=== PATIENT | male | born 1995 | race Caucasian/White ===

== ENCOUNTER 2017-06-16 16:32 | Inpatient (IN) | payer SELFPAY ==
[~2017-06-16] VITALS: Ht 172.7 cm; Wt 70.8 kg
[2017-06-16 16:45] VITALS: BP 128/70
[2017-06-16] MEDS ORDERED: Pantoprazole Inj IV ONE (16:45)
--- NOTE | 2017-06-16 16:53 | Emergency Room Report ---
History of Present Illness General Chief Complaint: General Complaint Source: Patient Present Illness HPI Patient presents after he passed melena last night and also some bright red blood. Also today he started vomiting up coffee grounds and then bright red blood. He has a history of gastritis that wasn't as severe a year ago. Paramedics found him pale diaphoretic and hypotensive. He responded to being supine and getting a bolus of 500 of normal saline. The patient denies any abdominal pain. He does have a history of gastritis and is not taking any medication at this time. He denies alcohol use or nonsteroidal anti- inflammatories. Patient apparently passed out twice earlier today which is why friends called EMS. No fevers, URI sy, dysuria, bleeding problems, bruising, headache, joint pain, depression, rashes. Allergies: Coded Allergies: No Known Allergies (Unverified , 06/16/17) Patient History Past Medical History: see triage record Social History: Reports: smoking - stopped 3 months ago, Denies: alcohol use Social History Narrative Amharic and studying Nigerien Reviewed Nursing Documentation: PMH: Agreed, PSxH: Agreed Nursing Documentation-PMH Past Medical History: No Stated History Review of Systems All Other Systems: negative except mentioned in HPI Physical Exam Vital Signs Date Time Temp Pulse Resp B/P (MAP) Pulse Ox O2 Delivery O2 Flow Rate FiO2 06/16/17 16:25 98.0 90 18 110/70 Room Air 98.1 Sp02 EP Interpretation: reviewed, normal General Appearance: well appearing, no apparent distress, GCS 15 Head: normocephalic Eyes: bilateral eye normal inspection, bilateral eye conjunctivae pale ENT: dry mucus membranes, other - blood on nares Neck: supple Respiratory: lungs clear, normal breath sounds Cardiovascular #1: regular rate, rhythm Cardiovascular #2: 2+ radial (R) Gastrointestinal: normal inspection, normal bowel sounds, non tender, no mass, non-distended Musculoskeletal: back normal, gait/station normal, normal range of motion Neurologic: alert, oriented x3, grossly normal Psychiatric: mood/affect normal Skin: warm/dry, pallor Medical Decision Making Diagnostic Impression: Primary Impression: UGI bleed Additional Impressions: Hemorrhagic shock Syncopal episodes Qualified Codes: R55 - Syncope and collapse ER Course Presents with melena and vomiting blood. He's also in a state of shock at this time. Emergent evaluation and treatment is undertaken. Patient needs to get blood. Blood bank has been notified. Also to be treated with Protonix and Zofran. I contacted Blood Bank to advise them that the patient most likely will need transfusions. DDx: gastritis, PUD, amongst others. Initial H/H OK. Patient not tachycardic after bolus. Still with pain. Will repeat H/H. Patient dropped 1 point. Clinically slightly better. Will hold on blood transfusion at this time. Patient color better. HR now without tachycardia. Needs admission for evaluation of UGI bleed and monitoring of H/H (may still need transfusion). Admit telemetry Dr. Quintero. Laboratory Tests Test 06/16/17 17:00 06/16/17 17:20 06/16/17 18:15 06/16/17 18:30 White Blood Count 8.1 K/UL (4.8-10.8) 7.1 K/UL (4.8-10.8) Red Blood Count 4.36 M/UL (4.70-6.10) L 4.06 M/UL (4.70-6.10) L Hemoglobin 13.5 G/DL (14.2-18.0) L 12.6 G/DL (14.2-18.0) L Hematocrit 38.1 % (42.0-52.0) L 35.6 % (42.0-52.0) L Mean Corpuscular Volume 88 FL (80-99) 88 FL (80-99) Mean Corpuscular Hemoglobin 31.0 PG (27.0-31.0) 30.9 PG (27.0-31.0) Mean Corpuscular Hemoglobin Concent 35.4 G/DL (32.0-36.0) 35.3 G/DL (32.0-36.0) Red Cell Distribution Width 10.8 % (11.6-14.8) L 10.7 % (11.6-14.8) L Platelet Count 155 K/UL (150-450) 167 K/UL (150-450) Mean Platelet Volume 8.7 FL (6.5-10.1) 8.9 FL (6.5-10.1) Neutrophils (%) (Auto) 77.3 % (45.0-75.0) H 80.3 % (45.0-75.0) H Lymphocytes (%) (Auto) 15.1 % (20.0-45.0) L 12.4 % (20.0-45.0) L Monocytes (%) (Auto) 6.3 % (1.0-10.0) 6.3 % (1.0-10.0) Eosinophils (%) (Auto) 0.5 % (0.0-3.0) 0.3 % (0.0-3.0) Basophils (%) (Auto) 0.8 % (0.0-2.0) 0.6 % (0.0-2.0) Sodium Level 143 MMOL/L (136-145) Potassium Level 3.9 MMOL/L (3.5-5.1) Chloride Level 108 MMOL/L (98-107) H Carbon Dioxide Level 28 MMOL/L (21-32) Anion Gap 7 mmol/L (5-15) Blood Urea Nitrogen 24 mg/dL (7-18) H Creatinine 1.0 MG/DL (0.55-1.30) Estimate Glomerular Filtration Rate > 60 mL/min (>60) Glucose Level 124 MG/DL (74-106) H Calcium Level 8.5 MG/DL (8.5-10.1) Total Bilirubin 0.5 MG/DL (0.2-1.0) Aspartate Amino Transferase (AST) 25 U/L (15-37) Alanine Aminotransferase (ALT) 72 U/L (12-78) Alkaline Phosphatase 67 U/L (46-116) Total Protein 6.1 G/DL (6.4-8.2) L Albumin 3.4 G/DL (3.4-5.0) Globulin 2.7 g/dL Albumin/Globulin Ratio 1.3 (1.0-2.7) Lipase 94 U/L (73-393) Urine Color Pale yellow Urine Appearance Clear Urine pH 7 (4.5-8.0) Urine Specific [place] 1.010 (1.005-1.035) Urine Protein Negative (NEGATIVE) Urine Glucose (UA) Negative (NEGATIVE) Urine Ketones 3+ (NEGATIVE) H Urine Occult Blood Negative (NEGATIVE) Urine Nitrite Negative (NEGATIVE) Urine Bilirubin Negative (NEGATIVE) Urine Urobilinogen Normal MG/DL (0.0-1.0) Urine Leukocyte Esterase Negative (NEGATIVE) Prothrombin Time 12.0 SEC (9.30-11.50) H Prothrombin Time INR 1.1 (0.9-1.1) PTT 18 SEC (23-33) L EKG Diagnostic Results Rate: normal Rhythm: NSR ST Segments: no acute changes Rhythm Strip Diag. Results EP Interpretation: yes Rhythm: NSR, no PVC's, no ectopy Chest X-Ray Diagnostic Results Chest X-Ray Diagnostic Results : Chest X-Ray Ordered: Yes # of Views/Limited/Complete: 1 View Indication: Other EP Interpretation: Yes Interpretation: no consolidation, no effusion, no pneumothorax Impression: No acute disease Electronically Signed by: Mich Mohan MD Other X-Ray Diagnostic Results Other X-Ray Diagnostic Results : X-Ray ordered: abd # of Views/Limited Vs Complete: 1 View Indication: Other EP Interpretation: Yes Interpretation: nonspecific bowel gas, no sbo, other - no masses Impression: Other Electronically Signed by: Mich Mohan MD Last Vital Signs Date Time Temp Pulse Resp B/P (MAP) Pulse Ox O2 Delivery O2 Flow Rate FiO2 06/16/17 20:00 97.7 101 18 111/68 100 Room Air 97.7 Status: improved Disposition: ADMITTED INPATIENT Condition: Serious Mich Mohan M.D. Jun 16, 2017 16:53
[2017-06-16 17:36] LABS: BASOPHILS % (AUTO) 0.8 % (0.0-2.0); EOSINOPHILS % (AUTO) 0.5 % (0.0-3.0); HEMATOCRIT 38.1 % (42.0-52.0); HEMOGLOBIN 13.5 G/DL (14.2-18.0); LYMPHOCYTES % (AUTO) 15.1 % (20.0-45.0); MEAN CORPUSCULAR VOLUME 88 FL (80-99); MONOCYTES % (AUTO) 6.3 % (1.0-10.0); NEUTROPHILS % (AUTO) 77.3 % (45.0-75.0); PLATELET COUNT 155 K/UL (150-450); RED BLOOD COUNT 4.36 M/UL (4.70-6.10); RED CELL DISTRIBUTION WIDTH 10.8 % (11.6-14.8); WHITE BLOOD COUNT 8.1 K/UL (4.8-10.8)
[2017-06-16 17:36] LABS: APPEARANCE,URINE CLEAR; BILIRUBIN, URINE NEGATIVE (NEGATIVE); COLOR,URINE PALE YELLOW; GLUCOSE, URINE (UA) NEGATIVE (NEGATIVE); KETONES,URINE 3+ (NEGATIVE); LEUKOCYTE ESTERASE ,URINE NEGATIVE (NEGATIVE); NITRITE,URINE NEGATIVE (NEGATIVE); PH,URINE 7 (4.5-8.0); PROTEIN,URINE NEGATIVE (NEGATIVE); UROBILINOGEN,URINE NORMAL MG/DL (0.0-1.0)
[2017-06-16 17:51] LABS: ANION GAP 7 mmol/L (5-15); BLOOD UREA NITROGEN 24 mg/dL (7-18); CALCIUM 8.5 MG/DL (8.5-10.1); CARBON DIOXIDE 28 MMOL/L (21-32); CHLORIDE 108 MMOL/L (98-107); POTASSIUM 3.9 MMOL/L (3.5-5.1); SODIUM 143 MMOL/L (136-145)
[2017-06-16 17:56] LABS: ALANINE AMINOTRANSFERASE 72 U/L (12-78); ALBUMIN 3.4 G/DL (3.4-5.0); ALBUMIN/GLOBULIN RATIO 1.3 (1.0-2.7); ALKALINE PHOSPHATASE 67 U/L (46-116); ASPARTATE AMINO TRANSFERASE 25 U/L (15-37); BILIRUBIN,TOTAL 0.5 MG/DL (0.2-1.0)
[2017-06-16 18:00] VITALS: BP 123/62
[2017-06-16 18:25] LABS: BASOPHILS % (AUTO) 0.6 % (0.0-2.0); EOSINOPHILS % (AUTO) 0.3 % (0.0-3.0); HEMATOCRIT 35.6 % (42.0-52.0); HEMOGLOBIN 12.6 G/DL (14.2-18.0); LYMPHOCYTES % (AUTO) 12.4 % (20.0-45.0); MEAN CORPUSCULAR VOLUME 88 FL (80-99); MONOCYTES % (AUTO) 6.3 % (1.0-10.0); NEUTROPHILS % (AUTO) 80.3 % (45.0-75.0); PLATELET COUNT 167 K/UL (150-450); RED BLOOD COUNT 4.06 M/UL (4.70-6.10); RED CELL DISTRIBUTION WIDTH 10.7 % (11.6-14.8); WHITE BLOOD COUNT 7.1 K/UL (4.8-10.8)
[2017-06-16 19:04] VITALS: BP 113/67
[2017-06-16] MEDS ORDERED: Morphine Sulfate 4mg/ml Inj IVP PRN (19:15)
[2017-06-16] MEDS ORDERED: Phytonadione 10 MG in D5W 55 ML IVPB ONE (19:15)
[2017-06-16] MEDS ORDERED: Nitroglycerin Subl 0.4mg tab SL PRN (19:15)
[2017-06-16] MEDS ORDERED: Mylanta II UD 30ml ORAL PRN (19:15)
[2017-06-16] MEDS ORDERED: Miralax 17gm pkt ORAL PRN (19:15)
[2017-06-16] MEDS ORDERED: NKM (19:21)
[2017-06-16 19:38] LABS: INR 1.1 (0.9-1.1)
[2017-06-16 20:00] VITALS: BP 111/68
[2017-06-16] MEDS: D5NS 1,000 ML IV SCH (20:21)
[2017-06-16] MEDS: Pantoprazole Inj IVP SCH (22:23)
[2017-06-17] VITALS (13 sets, daily range): BP systolic 84–127; BP diastolic 43–75
[2017-06-17] MEDS: D5NS 1,000 ML IV SCH ×3 (04:14→20:56)
[2017-06-17 07:21] LABS: BASOPHILS % (AUTO) 1.2 % (0.0-2.0); EOSINOPHILS % (AUTO) 1.1 % (0.0-3.0); HEMATOCRIT 30.2 % (42.0-52.0); HEMOGLOBIN 10.7 G/DL (14.2-18.0); LYMPHOCYTES % (AUTO) 37.2 % (20.0-45.0); MEAN CORPUSCULAR VOLUME 87 FL (80-99); MONOCYTES % (AUTO) 11.4 % (1.0-10.0); NEUTROPHILS % (AUTO) 49.1 % (45.0-75.0); PLATELET COUNT 147 K/UL (150-450); RED BLOOD COUNT 3.46 M/UL (4.70-6.10); WHITE BLOOD COUNT 4.3 K/UL (4.8-10.8)
[2017-06-17 07:41] LABS: INR 1.1 (0.9-1.1)
[2017-06-17 08:14] LABS: ALANINE AMINOTRANSFERASE 53 U/L (12-78); ALBUMIN/GLOBULIN RATIO 1.4 (1.0-2.7); ALKALINE PHOSPHATASE 56 U/L (46-116); AMYLASE 20 U/L (25-115); ANION GAP 6 mmol/L (5-15); ASPARTATE AMINO TRANSFERASE 16 U/L (15-37); BILIRUBIN,TOTAL 0.4 MG/DL (0.2-1.0); BLOOD UREA NITROGEN 16 mg/dL (7-18); CALCIUM 8.1 MG/DL (8.5-10.1); CARBON DIOXIDE 28 MMOL/L (21-32); CHLORIDE 110 MMOL/L (98-107); CREATININE 0.9 MG/DL (0.55-1.30); POTASSIUM 3.5 MMOL/L (3.5-5.1); SODIUM 144 MMOL/L (136-145)
[2017-06-17] MEDS: Pantoprazole Inj IVP SCH (08:46)
--- NOTE | 2017-06-17 09:24 | Diagnostic Imaging Report ---
Indication: Chest pain Technique: One view of the chest Comparison: none Findings: Lungs and pleural spaces are clear. Heart size is normal Impression: No acute process
--- NOTE | 2017-06-17 09:25 | Diagnostic Imaging Report ---
Indication: Abdominal pain Technique: Supine view of the abdomen Comparison: none Findings: Bowel gas pattern is unremarkable. No unusual masses or calcifications. Impression: No acute process
--- NOTE | 2017-06-17 09:38 | Pre-Procedure Note/Attestation ---
Pre-Procedure Note/Attestation Complete Prior to Procedure Planned Procedure: not applicable Procedure Narrative: egd Indications for Procedure Pre-Operative Diagnosis: gib Attestation I attest that I discussed the nature of the procedure; its benefits; risks and complications; and alternatives (and the risks and benefits of such alternatives ), prior to the procedure, with the patient (or the patient's legal credit representative). I attest that, if there was a reasonable possibility of needing a blood transfusion, the patient (or the patient's legal credit representative) was given the [facility] standardized written summary, pursuant to the [place] Blood Safety Act ([place] Health and Safety Code # 1645, as amended). I attest that I re-evaluated the patient just prior to the surgery and that there has been no change in the patient's H&P, except as documented below: FELY TORRES Jun 17, 2017 09:38
--- NOTE | 2017-06-17 09:45 | Short Stay Surgery H&P ---
History of Present Illness History of Present Illness Chief Complaint gib HPI Roberto Reynoso is a 22 year old male who was admitted on Jun 16, 2017 at 17:11 for Gastrointestinal Bleed, Shock Patient History Allergies: Coded Allergies: No Known Allergies (Unverified , 06/16/17) PAST MEDICAL HISTORY: Past Surgeries: Social History: Medication History Scheduled No Known Medications* (NKM - No Known Medications*), 0 ., (Reported) Review of Systems Cardiovascular: Reports: no symptoms, peripheral vascular disease Respiratory: Reports: no symptoms Skeletal: Reports: no symptoms Gastrointestinal: Reports: other Genitourinary: Reports: see HPI Neurologic: Reports: see HPI Endocrine: Reports: see HPI Hematologic: Reports: see HPI Physical Exam Vital Signs Last Vital Signs Date Time Temp Pulse Resp B/P (MAP) Pulse Ox O2 Delivery O2 Flow Rate FiO2 06/17/17 04:00 77 06/17/17 00:00 98.7 20 108/60 100 Room Air 98.7 Labs Laboratory Tests Test 06/16/17 17:00 06/16/17 17:20 06/16/17 18:15 06/16/17 18:30 White Blood Count 8.1 K/UL (4.8-10.8) 7.1 K/UL (4.8-10.8) Red Blood Count 4.36 M/UL (4.70-6.10) L 4.06 M/UL (4.70-6.10) L Hemoglobin 13.5 G/DL (14.2-18.0) L 12.6 G/DL (14.2-18.0) L Hematocrit 38.1 % (42.0-52.0) L 35.6 % (42.0-52.0) L Mean Corpuscular Volume 88 FL (80-99) 88 FL (80-99) Mean Corpuscular Hemoglobin 31.0 PG (27.0-31.0) 30.9 PG (27.0-31.0) Mean Corpuscular Hemoglobin Concent 35.4 G/DL (32.0-36.0) 35.3 G/DL (32.0-36.0) Red Cell Distribution Width 10.8 % (11.6-14.8) L 10.7 % (11.6-14.8) L Platelet Count 155 K/UL (150-450) 167 K/UL (150-450) Mean Platelet Volume 8.7 FL (6.5-10.1) 8.9 FL (6.5-10.1) Neutrophils (%) (Auto) 77.3 % (45.0-75.0) H 80.3 % (45.0-75.0) H Lymphocytes (%) (Auto) 15.1 % (20.0-45.0) L 12.4 % (20.0-45.0) L Monocytes (%) (Auto) 6.3 % (1.0-10.0) 6.3 % (1.0-10.0) Eosinophils (%) (Auto) 0.5 % (0.0-3.0) 0.3 % (0.0-3.0) Basophils (%) (Auto) 0.8 % (0.0-2.0) 0.6 % (0.0-2.0) Sodium Level 143 MMOL/L (136-145) Potassium Level 3.9 MMOL/L (3.5-5.1) Chloride Level 108 MMOL/L (98-107) H Carbon Dioxide Level 28 MMOL/L (21-32) Anion Gap 7 mmol/L (5-15) Blood Urea Nitrogen 24 mg/dL (7-18) H Creatinine 1.0 MG/DL (0.55-1.30) Estimat Glomerular Filtration Rate > 60 mL/min (>60) Glucose Level 124 MG/DL (74-106) H Calcium Level 8.5 MG/DL (8.5-10.1) Total Bilirubin 0.5 MG/DL (0.2-1.0) Aspartate Amino Transf (AST/SGOT) 25 U/L (15-37) Alanine Aminotransferase (ALT/SGPT) 72 U/L (12-78) Alkaline Phosphatase 67 U/L (46-116) Total Protein 6.1 G/DL (6.4-8.2) L Albumin 3.4 G/DL (3.4-5.0) Globulin 2.7 g/dL Albumin/Globulin Ratio 1.3 (1.0-2.7) Lipase 94 U/L (73-393) Urine Color Pale yellow Urine Appearance Clear Urine pH 7 (4.5-8.0) Urine Specific [place] 1.010 (1.005-1.035) Urine Protein Negative (NEGATIVE) Urine Glucose (UA) Negative (NEGATIVE) Urine Ketones 3+ (NEGATIVE) H Urine Occult Blood Negative (NEGATIVE) Urine Nitrite Negative (NEGATIVE) Urine Bilirubin Negative (NEGATIVE) Urine Urobilinogen Normal MG/DL (0.0-1.0) Urine Leukocyte Esterase Negative (NEGATIVE) Prothrombin Time 12.0 SEC (9.30-11.50) H Prothromb Time International Ratio 1.1 (0.9-1.1) Activated Partial Thromboplast Time 18 SEC (23-33) L Test 06/17/17 06:45 White Blood Count 4.3 K/UL (4.8-10.8) L Red Blood Count 3.46 M/UL (4.70-6.10) L Hemoglobin 10.7 G/DL (14.2-18.0) L Hematocrit 30.2 % (42.0-52.0) L Mean Corpuscular Volume 87 FL (80-99) Mean Corpuscular Hemoglobin 30.9 PG (27.0-31.0) Mean Corpuscular Hemoglobin Concent 35.4 G/DL (32.0-36.0) Red Cell Distribution Width 11.0 % (11.6-14.8) L Platelet Count 147 K/UL (150-450) L Mean Platelet Volume 8.9 FL (6.5-10.1) Neutrophils (%) (Auto) 49.1 % (45.0-75.0) Lymphocytes (%) (Auto) 37.2 % (20.0-45.0) Monocytes (%) (Auto) 11.4 % (1.0-10.0) H Eosinophils (%) (Auto) 1.1 % (0.0-3.0) Basophils (%) (Auto) 1.2 % (0.0-2.0) Prothrombin Time 12.0 SEC (9.30-11.50) H Prothromb Time International Ratio 1.1 (0.9-1.1) Activated Partial Thromboplast Time 24 SEC (23-33) Sodium Level 144 MMOL/L (136-145) Potassium Level 3.5 MMOL/L (3.5-5.1) Chloride Level 110 MMOL/L (98-107) H Carbon Dioxide Level 28 MMOL/L (21-32) Anion Gap 6 mmol/L (5-15) Blood Urea Nitrogen 16 mg/dL (7-18) Creatinine 0.9 MG/DL (0.55-1.30) Estimat Glomerular Filtration Rate > 60 mL/min (>60) Glucose Level 119 MG/DL (74-106) H Calcium Level 8.1 MG/DL (8.5-10.1) L Total Bilirubin 0.4 MG/DL (0.2-1.0) Aspartate Amino Transf (AST/SGOT) 16 U/L (15-37) Alanine Aminotransferase (ALT/SGPT) 53 U/L (12-78) Alkaline Phosphatase 56 U/L (46-116) Total Protein 5.1 G/DL (6.4-8.2) L Albumin 3.0 G/DL (3.4-5.0) L Globulin 2.1 g/dL Albumin/Globulin Ratio 1.4 (1.0-2.7) Amylase Level 20 U/L (25-115) L Lipase 72 U/L (73-393) L Skin: normal HENT: normal Heart: normal Lungs: normal Abdomen: normal Extremities: normal Plan Plan of Care egd Final Diagnosis: Attestation Are the patient's medical conditions optimized for surgery? Attestation Response: yes FELY TORRES Jun 17, 2017 09:45
--- NOTE | 2017-06-17 09:54 | Endoscopy Procedure Note ---
Endoscopy Procedure Note General Indication for Procedure: gib Procedures Performed: EGD Operative Findings/Diagnosis: du Specimen: yes Pt Tolerated Procedure Well: Yes Estimated Blood Loss: none Anesthesia Anesthesiologist: regi Anesthesia: MAC Inserted Devices Implant(s) used?: No GI Core Measures 50 yrs or older w/o bx or poly: Not Applicable 10yrs. F/U not recommended: Not Applicable FELY TORRES Jun 17, 2017 09:54
[2017-06-17] MEDS ORDERED: LR 1000ml ONE (10:00)
[2017-06-17] MEDS ORDERED: Propofol 200mg/20ml IV ONE (10:00)
[2017-06-17] MEDS ORDERED: Lidocaine 1% MPF 10mg/ml 5ml ONE (10:00)
--- NOTE | 2017-06-17 10:01 | Immediate Post-Op Evaluation ---
Immediate Post-Op Evalulation Immediate Post-Op Evalulation Procedure: EGD Date of Evaluation: Jun 17, 2017 Time of Evaluation: 10:00 IV Fluids: 500 Blood Pressure Systolic: 84 Blood Pressure Diastolic: 43 Pulse Rate: 76 Respiratory Rate: 14 O2 Sat by Pulse Oximetry: 100 Temperature (Fahrenheit): 98.0 Pain Score (1-10): 0 Nausea: No Vomiting: No Complications none Patient Status: awake, reacts Hydration Status: adequate Drug: none LUC PAIGE CRNA Jun 17, 2017 10:01
--- NOTE | 2017-06-17 10:02 | Anethesia Preoperative Eval ---
Anesthesia Pre-op PMH/ROS General Date of Evaluation: Jun 17, 2017 Time of Evaluation: 09:42 Anesthesiologist: jai ASA Score: ASA 2 Mallampati Score Class I : Soft palate, uvula, fauces, pillars visible Class II: Soft palate, uvula, fauces visible Class III: Soft palate, base of uvula visible Class IV: Only hard plate visible Mallampati Classification: Class II Surgeon: haroldo Diagnosis: gi bleed Surgical Procedure: EGD Anesthesia History: none Family History: no anesthesia problems Allergies: Coded Allergies: No Known Allergies (Unverified , 06/16/17) Medications: see eMAR Past Medical History Cardiovascular: Denies: HTN, CAD, LA, valve dz, arrhythmia, other Pulmonary: Denies: asthma, COPD, LIZZIE, other Gastrointestinal/Genitourinary: Denies: GERD, CRI, ESRD, other Neurologic/Psychiatric: Denies: dementia, CVA, depression/anxiety, TIA, other Endocrine: Denies: DM, hypothyroidism, steroids, other HEENT: Denies: cataract (L), cataract (R), glaucoma, [place] (L), [place] (R), other Hematology/Immune: Reports: anemia Musculoskeletal/Integumentary: Denies: OA, RA, DJD, DDD, edema, other PSxH Narrative: none Anesthesia Pre-op Phys. Exam Physician Exam Last Vital Signs Date Time Temp Pulse Resp B/P (MAP) Pulse Ox O2 Delivery O2 Flow Rate FiO2 06/17/17 04:00 77 06/17/17 00:00 98.7 20 108/60 100 Room Air 98.7 Constitutional: NAD Neurologic: CN 2-12 intact Cardiovascular: RRR Respiratory: CTA Gastrointestinal: S/NT/ND Airway Exam Mallampati Classification 2 Mallampati Score: Class II MO: full ROM: full Dentures: no upper, no lower Anesthesia Pre-op A/P Labs Hematology Test 06/16/17 17:00 06/16/17 18:15 06/17/17 06:45 White Blood Count 8.1 K/UL (4.8-10.8) 7.1 K/UL (4.8-10.8) 4.3 K/UL (4.8-10.8) L Red Blood Count 4.36 M/UL (4.70-6.10) L 4.06 M/UL (4.70-6.10) L 3.46 M/UL (4.70-6.10) L Hemoglobin 13.5 G/DL (14.2-18.0) L 12.6 G/DL (14.2-18.0) L 10.7 G/DL (14.2-18.0) L Hematocrit 38.1 % (42.0-52.0) L 35.6 % (42.0-52.0) L 30.2 % (42.0-52.0) L Mean Corpuscular Volume 88 FL (80-99) 88 FL (80-99) 87 FL (80-99) Mean Corpuscular Hemoglobin 31.0 PG (27.0-31.0) 30.9 PG (27.0-31.0) 30.9 PG (27.0-31.0) Mean Corpuscular Hemoglobin Concent 35.4 G/DL (32.0-36.0) 35.3 G/DL (32.0-36.0) 35.4 G/DL (32.0-36.0) Red Cell Distribution Width 10.8 % (11.6-14.8) L 10.7 % (11.6-14.8) L 11.0 % (11.6-14.8) L Platelet Count 155 K/UL (150-450) 167 K/UL (150-450) 147 K/UL (150-450) L Mean Platelet Volume 8.7 FL (6.5-10.1) 8.9 FL (6.5-10.1) 8.9 FL (6.5-10.1) Neutrophils (%) (Auto) 77.3 % (45.0-75.0) H 80.3 % (45.0-75.0) H 49.1 % (45.0-75.0) Lymphocytes (%) (Auto) 15.1 % (20.0-45.0) L 12.4 % (20.0-45.0) L 37.2 % (20.0-45.0) Monocytes (%) (Auto) 6.3 % (1.0-10.0) 6.3 % (1.0-10.0) 11.4 % (1.0-10.0) H Eosinophils (%) (Auto) 0.5 % (0.0-3.0) 0.3 % (0.0-3.0) 1.1 % (0.0-3.0) Basophils (%) (Auto) 0.8 % (0.0-2.0) 0.6 % (0.0-2.0) 1.2 % (0.0-2.0) Coagulation Test 06/16/17 18:30 06/17/17 06:45 Prothrombin Time 12.0 SEC (9.30-11.50) H 12.0 SEC (9.30-11.50) H Prothromb Time International Ratio 1.1 (0.9-1.1) 1.1 (0.9-1.1) Activated Partial Thromboplast Time 18 SEC (23-33) L 24 SEC (23-33) Chemistry Test 06/16/17 17:00 06/17/17 06:45 Sodium Level 143 MMOL/L (136-145) 144 MMOL/L (136-145) Potassium Level 3.9 MMOL/L (3.5-5.1) 3.5 MMOL/L (3.5-5.1) Chloride Level 108 MMOL/L (98-107) H 110 MMOL/L (98-107) H Carbon Dioxide Level 28 MMOL/L (21-32) 28 MMOL/L (21-32) Anion Gap 7 mmol/L (5-15) 6 mmol/L (5-15) Blood Urea Nitrogen 24 mg/dL (7-18) H 16 mg/dL (7-18) Creatinine 1.0 MG/DL (0.55-1.30) 0.9 MG/DL (0.55-1.30) Estimat Glomerular Filtration Rate > 60 mL/min (>60) > 60 mL/min (>60) Glucose Level 124 MG/DL (74-106) H 119 MG/DL (74-106) H Calcium Level 8.5 MG/DL (8.5-10.1) 8.1 MG/DL (8.5-10.1) L Total Bilirubin 0.5 MG/DL (0.2-1.0) 0.4 MG/DL (0.2-1.0) Aspartate Amino Transf (AST/SGOT) 25 U/L (15-37) 16 U/L (15-37) Alanine Aminotransferase (ALT/SGPT) 72 U/L (12-78) 53 U/L (12-78) Alkaline Phosphatase 67 U/L (46-116) 56 U/L (46-116) Total Protein 6.1 G/DL (6.4-8.2) L 5.1 G/DL (6.4-8.2) L Albumin 3.4 G/DL (3.4-5.0) 3.0 G/DL (3.4-5.0) L Globulin 2.7 g/dL 2.1 g/dL Albumin/Globulin Ratio 1.3 (1.0-2.7) 1.4 (1.0-2.7) Lipase 94 U/L (73-393) 72 U/L (73-393) L Amylase Level 20 U/L (25-115) L Studies Pre-op Studies: EKG - sr Risk Assessment & Plan Plan: mac Status Change Before Surgery: No Pre-Antibiotics Drug: none LUC PAIGE CRNA Jun 17, 2017 10:02
--- NOTE | 2017-06-17 10:39 | 48 Hour Post Anesthesia Eval ---
Post Anesthesia Evaluation Procedure: EGD Date of Evaluation: Jun 17, 2017 Time of Evaluation: 10:38 Blood Pressure Systolic: 106 0: 57 Pulse Rate: 74 Respiratory Rate: 14 Temperature (Fahrenheit): 98 O2 Sat by Pulse Oximetry: 99 Airway: patent Nausea: No Vomiting: No Hydration Status: adequate Cardiopulmonary Status: stable Mental Status/LOC: patient returned to baseline Follow-up Care/Observations: na Post-Anesthesia Complications: none Follow-up care needed: N/A LUC PAIGE CRNA Jun 17, 2017 10:39
--- NOTE | 2017-06-17 11:42 | Consultation ---
History of Present Illness General Date patient seen: Jun 17, 2017 Chief Complaint: General Complaint Present Illness HPI 22 year old male with hx of GERD presented to ER after and episode of melena last night and also some bright red blood. Also today he started vomiting up coffee grounds and then bright red blood. Paramedics found him pale diaphoretic and hypotensive. Patient apparently passed out twice earlier today. He is admitted to telemetry for acute Gi bleeding and symptomatic anemia. Allergies: Coded Allergies: No Known Allergies (Unverified , 06/16/17) Medication History Scheduled No Known Medications* (NKM - No Known Medications*), 0 ., (Reported) Patient History Healthcare decision maker Resuscitation status Full Code Advanced Directive on File Past Medical/Surgical History Past Medical/Surgical History: (1) GERD (gastroesophageal reflux disease) Physical Exam General Appearance: WD/WN Lines, tubes and drains: peripheral HEENT: normocephalic, atraumatic Neck: non-tender, normal alignment Respiratory/Chest: chest wall non-tender, lungs clear Breasts: no masses Cardiovascular/Chest: normal peripheral pulses Abdomen: normal bowel sounds Genitourinary/Rectal: normal genital exam Extremities: normal range of motion Skin Exam: normal pigmentation 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 Last 24 Hour Vital Signs Date Time Temp Pulse Resp B/P (MAP) Pulse Ox O2 Delivery O2 Flow Rate FiO2 06/17/17 10:47 97.2 78 19 110/58 99 Room Air 97.2 06/17/17 10:39 208.4 74 14 99 06/17/17 10:35 77 16 106/57 99 Room Air 06/17/17 10:25 81 18 108/59 100 Nasal Cannula 3.0 06/17/17 10:15 77 19 105/57 100 Nasal Cannula 3.0 06/17/17 10:05 76 19 103/61 100 Nasal Cannula 3.0 06/17/17 10:01 208.4 76 14 100 06/17/17 10:00 78 18 94/52 100 Nasal Cannula 3.0 06/17/17 09:55 98.3 85 22 84/43 100 Nasal Cannula 3.0 98.3 06/17/17 08:00 97.7 85 22 107/66 98 Room Air 97.7 06/17/17 04:00 77 06/17/17 00:00 98.7 84 20 108/60 100 Room Air 98.7 06/17/17 00:00 86 06/16/17 20:00 97.7 101 18 111/68 100 Room Air 97.7 06/16/17 20:00 91 06/16/17 19:21 97.9 94 12 113/67 100 Room Air 97.9 06/16/17 19:04 94 12 113/67 100 Room Air 06/16/17 18:00 98 14 123/62 100 Room Air 06/16/17 16:45 97.9 103 14 128/70 100 Room Air 97.9 06/16/17 16:25 98.0 90 18 110/70 Room Air 98.1 Intake and Output 06/16/17 06/17/17 19:00 07:00 Intake Total 1000 ml 1051.7 ml Balance 1000 ml 1051.7 ml Intake Oral 0 ml IV Total 1000 ml 1051.7 ml # Voids 2 # Bowel Movements 10 Laboratory Tests Test 06/16/17 17:00 06/16/17 17:20 06/16/17 18:15 06/16/17 18:30 White Blood Count 8.1 K/UL (4.8-10.8) 7.1 K/UL (4.8-10.8) Red Blood Count 4.36 M/UL (4.70-6.10) L 4.06 M/UL (4.70-6.10) L Hemoglobin 13.5 G/DL (14.2-18.0) L 12.6 G/DL (14.2-18.0) L Hematocrit 38.1 % (42.0-52.0) L 35.6 % (42.0-52.0) L Mean Corpuscular Volume 88 FL (80-99) 88 FL (80-99) Mean Corpuscular Hemoglobin 31.0 PG (27.0-31.0) 30.9 PG (27.0-31.0) Mean Corpuscular Hemoglobin Concent 35.4 G/DL (32.0-36.0) 35.3 G/DL (32.0-36.0) Red Cell Distribution Width 10.8 % (11.6-14.8) L 10.7 % (11.6-14.8) L Platelet Count 155 K/UL (150-450) 167 K/UL (150-450) Mean Platelet Volume 8.7 FL (6.5-10.1) 8.9 FL (6.5-10.1) Neutrophils (%) (Auto) 77.3 % (45.0-75.0) H 80.3 % (45.0-75.0) H Lymphocytes (%) (Auto) 15.1 % (20.0-45.0) L 12.4 % (20.0-45.0) L Monocytes (%) (Auto) 6.3 % (1.0-10.0) 6.3 % (1.0-10.0) Eosinophils (%) (Auto) 0.5 % (0.0-3.0) 0.3 % (0.0-3.0) Basophils (%) (Auto) 0.8 % (0.0-2.0) 0.6 % (0.0-2.0) Sodium Level 143 MMOL/L (136-145) Potassium Level 3.9 MMOL/L (3.5-5.1) Chloride Level 108 MMOL/L (98-107) H Carbon Dioxide Level 28 MMOL/L (21-32) Anion Gap 7 mmol/L (5-15) Blood Urea Nitrogen 24 mg/dL (7-18) H Creatinine 1.0 MG/DL (0.55-1.30) Estimat Glomerular Filtration Rate > 60 mL/min (>60) Glucose Level 124 MG/DL (74-106) H Calcium Level 8.5 MG/DL (8.5-10.1) Total Bilirubin 0.5 MG/DL (0.2-1.0) Aspartate Amino Transf (AST/SGOT) 25 U/L (15-37) Alanine Aminotransferase (ALT/SGPT) 72 U/L (12-78) Alkaline Phosphatase 67 U/L (46-116) Total Protein 6.1 G/DL (6.4-8.2) L Albumin 3.4 G/DL (3.4-5.0) Globulin 2.7 g/dL Albumin/Globulin Ratio 1.3 (1.0-2.7) Lipase 94 U/L (73-393) Urine Color Pale yellow Urine Appearance Clear Urine pH 7 (4.5-8.0) Urine Specific [place] 1.010 (1.005-1.035) Urine Protein Negative (NEGATIVE) Urine Glucose (UA) Negative (NEGATIVE) Urine Ketones 3+ (NEGATIVE) H Urine Occult Blood Negative (NEGATIVE) Urine Nitrite Negative (NEGATIVE) Urine Bilirubin Negative (NEGATIVE) Urine Urobilinogen Normal MG/DL (0.0-1.0) Urine Leukocyte Esterase Negative (NEGATIVE) Prothrombin Time 12.0 SEC (9.30-11.50) H Prothromb Time International Ratio 1.1 (0.9-1.1) Activated Partial Thromboplast Time 18 SEC (23-33) L Test 06/17/17 06:45 White Blood Count 4.3 K/UL (4.8-10.8) L Red Blood Count 3.46 M/UL (4.70-6.10) L Hemoglobin 10.7 G/DL (14.2-18.0) L Hematocrit 30.2 % (42.0-52.0) L Mean Corpuscular Volume 87 FL (80-99) Mean Corpuscular Hemoglobin 30.9 PG (27.0-31.0) Mean Corpuscular Hemoglobin Concent 35.4 G/DL (32.0-36.0) Red Cell Distribution Width 11.0 % (11.6-14.8) L Platelet Count 147 K/UL (150-450) L Mean Platelet Volume 8.9 FL (6.5-10.1) Neutrophils (%) (Auto) 49.1 % (45.0-75.0) Lymphocytes (%) (Auto) 37.2 % (20.0-45.0) Monocytes (%) (Auto) 11.4 % (1.0-10.0) H Eosinophils (%) (Auto) 1.1 % (0.0-3.0) Basophils (%) (Auto) 1.2 % (0.0-2.0) Prothrombin Time 12.0 SEC (9.30-11.50) H Prothromb Time International Ratio 1.1 (0.9-1.1) Activated Partial Thromboplast Time 24 SEC (23-33) Sodium Level 144 MMOL/L (136-145) Potassium Level 3.5 MMOL/L (3.5-5.1) Chloride Level 110 MMOL/L (98-107) H Carbon Dioxide Level 28 MMOL/L (21-32) Anion Gap 6 mmol/L (5-15) Blood Urea Nitrogen 16 mg/dL (7-18) Creatinine 0.9 MG/DL (0.55-1.30) Estimat Glomerular Filtration Rate > 60 mL/min (>60) Glucose Level 119 MG/DL (74-106) H Calcium Level 8.1 MG/DL (8.5-10.1) L Total Bilirubin 0.4 MG/DL (0.2-1.0) Aspartate Amino Transf (AST/SGOT) 16 U/L (15-37) Alanine Aminotransferase (ALT/SGPT) 53 U/L (12-78) Alkaline Phosphatase 56 U/L (46-116) Total Protein 5.1 G/DL (6.4-8.2) L Albumin 3.0 G/DL (3.4-5.0) L Globulin 2.1 g/dL Albumin/Globulin Ratio 1.4 (1.0-2.7) Amylase Level 20 U/L (25-115) L Lipase 72 U/L (73-393) L Height (Feet): 5 Height (Inches): 8.00 Weight (Pounds): 156 Medications Current Medications Medications (Trade) Dose Ordered Sig/Hilary Route PRN Reason Start Time Stop Time Status Last Admin Dose Admin Acetaminophen (Tylenol) 650 mg Q4H PRN ORAL T>100.5 06/16/17 19:15 07/16/17 19:14 Al Hydroxide/Mg Hydroxide (Mylanta II) 30 ml Q6H PRN ORAL dyspepsia 06/16/17 19:15 07/16/17 19:14 Dextrose (Dextrose 50%) STAT PRN IV Hypoglycemia 06/16/17 19:15 07/16/17 19:14 Dextrose/Sodium Chloride 1,000 ml @ 100 mls/hr Q10H IV 06/16/17 19:30 07/16/17 19:29 06/17/17 04:14 Diphenhydramine HCl (Benadryl) 25 mg Q6H PRN ORAL Itching/Pruritis 06/16/17 19:15 07/16/17 19:14 Morphine Sulfate (Morphine Sulfate) 2 mg Q4H PRN IVP Severe Pain (Pain Scale 7-10) 06/16/17 19:15 06/23/17 19:14 Nitroglycerin (Ntg) 0.4 mg Q5M X 3 DOSES PRN SL Prn Chest Pain 06/16/17 19:15 07/16/17 19:14 Ondansetron HCl (Zofran) 4 mg Q6H PRN IVP Nausea & Vomiting 06/16/17 19:15 07/16/17 19:14 Pantoprazole (Protonix) 40 mg EVERY 12 HOURS IVP 06/16/17 22:00 07/16/17 21:59 06/17/17 08:46 Polyethylene Glycol (Miralax) 17 gm HSPRN PRN ORAL Constipation 06/16/17 19:15 07/16/17 19:14 Temazepam (Restoril) 15 mg HSPRN PRN ORAL Insomnia 06/16/17 21:00 06/23/17 20:59 Assessment/Plan Problem List: (1) UGI bleed ICD Codes: K92.2 - Gastrointestinal hemorrhage, unspecified SNOMED: 82086375 (2) Hemorrhagic shock ICD Codes: R57.8 - Other shock SNOMED: 783990 (3) Syncopal episodes ICD Codes: R55 - Syncope and collapse SNOMED: 775528847 Qualifiers: Qualified Codes: R55 - Syncope and collapse (4) GERD (gastroesophageal reflux disease) ICD Codes: K21.9 - Gastro-esophageal reflux disease without esophagitis SNOMED: 311897429 Assessment/Plan npo IV fluids GI evaluation prbc prn check h/h cvt prophylaxis DAILY OWEN Jun 17, 2017 11:42
--- NOTE | 2017-06-17 11:46 | Pulmonology Progress Note ---
Assessment/Plan Problems: (1) UGI bleed (2) Hemorrhagic shock (3) Syncopal episodes (4) GERD (gastroesophageal reflux disease) Assessment/Plan hemodynamically stable started on regular diet check h/h prbc prn Subjective ROS Limited/Unobtainable: No Interval Events: EGD showed duodenal ulcer Allergies: Coded Allergies: No Known Allergies (Unverified , 06/16/17) Objective Last 24 Hour Vital Signs Date Time Temp Pulse Resp B/P (MAP) Pulse Ox O2 Delivery O2 Flow Rate FiO2 06/17/17 10:47 97.2 78 19 110/58 99 Room Air 97.2 06/17/17 10:39 208.4 74 14 99 06/17/17 10:35 77 16 106/57 99 Room Air 06/17/17 10:25 81 18 108/59 100 Nasal Cannula 3.0 06/17/17 10:15 77 19 105/57 100 Nasal Cannula 3.0 06/17/17 10:05 76 19 103/61 100 Nasal Cannula 3.0 06/17/17 10:01 208.4 76 14 100 06/17/17 10:00 78 18 94/52 100 Nasal Cannula 3.0 06/17/17 09:55 98.3 85 22 84/43 100 Nasal Cannula 3.0 98.3 06/17/17 08:00 97.7 85 22 107/66 98 Room Air 97.7 06/17/17 04:00 77 06/17/17 00:00 98.7 84 20 108/60 100 Room Air 98.7 06/17/17 00:00 86 06/16/17 20:00 97.7 101 18 111/68 100 Room Air 97.7 06/16/17 20:00 91 06/16/17 19:21 97.9 94 12 113/67 100 Room Air 97.9 06/16/17 19:04 94 12 113/67 100 Room Air 06/16/17 18:00 98 14 123/62 100 Room Air 06/16/17 16:45 97.9 103 14 128/70 100 Room Air 97.9 06/16/17 16:25 98.0 90 18 110/70 Room Air 98.1 Intake and Output 06/16/17 06/17/17 19:00 07:00 Intake Total 1000 ml 1051.7 ml Balance 1000 ml 1051.7 ml Intake Oral 0 ml IV Total 1000 ml 1051.7 ml # Voids 2 # Bowel Movements 10 General Appearance: WD/WN HEENT: normocephalic, atraumatic Respiratory/Chest: chest wall non-tender, lungs clear Cardiovascular: normal peripheral pulses, normal rate Abdomen: normal bowel sounds, soft, non tender Skin: no ulcers 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 grossly normal, no motor/sensory deficits Laboratory Tests 06/16/17 17:00: White Blood Count 8.1, Red Blood Count 4.36L, Hemoglobin 13.5L, Hematocrit 38.1L , Mean Corpuscular Volume 88, Mean Corpuscular Hemoglobin 31.0, Mean Corpuscular Hemoglobin Concent 35.4, Red Cell Distribution Width 10.8L, Platelet Count 155, Mean Platelet Volume 8.7, Neutrophils (%) (Auto) 77.3H, Lymphocytes (%) (Auto) 15.1L, Monocytes (%) (Auto) 6.3, Eosinophils (%) (Auto) 0.5, Basophils (%) (Auto) 0.8, Sodium Level 143, Potassium Level 3.9, Chloride Level 108H, Carbon Dioxide Level 28, Anion Gap 7, Blood Urea Nitrogen 24H, Creatinine 1.0, Estimat Glomerular Filtration Rate > 60, Glucose Level 124H, Calcium Level 8.5, Total Bilirubin 0.5, Aspartate Amino Transf (AST/SGOT) 25, Alanine Aminotransferase (ALT/SGPT) 72, Alkaline Phosphatase 67, Total Protein 6.1L, Albumin 3.4, Globulin 2.7, Albumin/Globulin Ratio 1.3, Lipase 94 06/16/17 17:20: Urine Color Pale yellow, Urine Appearance Clear, Urine pH 7, Urine Specific [place] 1.010, Urine Protein Negative, Urine Glucose (UA) Negative, Urine Ketones 3+H, Urine Occult Blood Negative, Urine Nitrite Negative, Urine Bilirubin Negative, Urine Urobilinogen Normal, Urine Leukocyte Esterase Negative 06/16/17 18:15: White Blood Count 7.1, Red Blood Count 4.06L, Hemoglobin 12.6L, Hematocrit 35.6L , Mean Corpuscular Volume 88, Mean Corpuscular Hemoglobin 30.9, Mean Corpuscular Hemoglobin Concent 35.3, Red Cell Distribution Width 10.7L, Platelet Count 167, Mean Platelet Volume 8.9, Neutrophils (%) (Auto) 80.3H, Lymphocytes (%) (Auto) 12.4L, Monocytes (%) (Auto) 6.3, Eosinophils (%) (Auto) 0.3, Basophils (%) (Auto) 0.6 06/16/17 18:30: Prothrombin Time 12.0H, Prothromb Time International Ratio 1.1, Activated Partial Thromboplast Time 18L 06/17/17 06:45: White Blood Count 4.3L, Red Blood Count 3.46L, Hemoglobin 10.7L, Hematocrit 30.2L, Mean Corpuscular Volume 87, Mean Corpuscular Hemoglobin 30.9, Mean Corpuscular Hemoglobin Concent 35.4, Red Cell Distribution Width 11.0L, Platelet Count 147L, Mean Platelet Volume 8.9, Neutrophils (%) (Auto) 49.1, Lymphocytes (%) (Auto) 37.2, Monocytes (%) (Auto) 11.4H, Eosinophils (%) (Auto) 1.1, Basophils (%) (Auto) 1.2, Prothrombin Time 12.0H, Prothromb Time International Ratio 1.1, Activated Partial Thromboplast Time 24, Sodium Level 144, Potassium Level 3.5, Chloride Level 110H, Carbon Dioxide Level 28, Anion Gap 6, Blood Urea Nitrogen 16, Creatinine 0.9, Estimat Glomerular Filtration Rate > 60, Glucose Level 119H, Calcium Level 8.1L, Total Bilirubin 0.4, Aspartate Amino Transf (AST/SGOT) 16, Alanine Aminotransferase (ALT/SGPT) 53, Alkaline Phosphatase 56, Total Protein 5.1L, Albumin 3.0L, Globulin 2.1, Albumin /Globulin Ratio 1.4, Amylase Level 20L, Lipase 72L Current Medications Medications (Trade) Dose Ordered Sig/Hilary Route PRN Reason Start Time Stop Time Status Last Admin Dose Admin Acetaminophen (Tylenol) 650 mg Q4H PRN ORAL T>100.5 06/16/17 19:15 07/16/17 19:14 Al Hydroxide/Mg Hydroxide (Mylanta II) 30 ml Q6H PRN ORAL dyspepsia 06/16/17 19:15 07/16/17 19:14 Dextrose (Dextrose 50%) STAT PRN IV Hypoglycemia 06/16/17 19:15 07/16/17 19:14 Dextrose/Sodium Chloride 1,000 ml @ 100 mls/hr Q10H IV 06/16/17 19:30 07/16/17 19:29 06/17/17 04:14 Diphenhydramine HCl (Benadryl) 25 mg Q6H PRN ORAL Itching/Pruritis 06/16/17 19:15 07/16/17 19:14 Morphine Sulfate (Morphine Sulfate) 2 mg Q4H PRN IVP Severe Pain (Pain Scale 7-10) 06/16/17 19:15 06/23/17 19:14 Nitroglycerin (Ntg) 0.4 mg Q5M X 3 DOSES PRN SL Prn Chest Pain 06/16/17 19:15 07/16/17 19:14 Ondansetron HCl (Zofran) 4 mg Q6H PRN IVP Nausea & Vomiting 06/16/17 19:15 07/16/17 19:14 Pantoprazole (Protonix) 40 mg EVERY 12 HOURS IVP 06/16/17 22:00 07/16/17 21:59 06/17/17 08:46 Polyethylene Glycol (Miralax) 17 gm HSPRN PRN ORAL Constipation 06/16/17 19:15 07/16/17 19:14 Temazepam (Restoril) 15 mg HSPRN PRN ORAL Insomnia 06/16/17 21:00 06/23/17 20:59 DAILY OWEN Jun 17, 2017 11:46
[2017-06-17] MEDS ORDERED: Mylanta II UD 30ml ORAL PRN (14:30)
[2017-06-17] MEDS ORDERED: Morphine Sulfate 4mg/ml Inj IVP PRN (14:30)
[2017-06-17] MEDS ORDERED: Nitroglycerin Subl 0.4mg tab SL PRN (14:30)
--- NOTE | 2017-06-17 15:30 | Procedure Note ---
DATE OF PROCEDURE: 06/17/2017 SURGEON: Michael Villareal M.D. REFERRING PHYSICIAN: Christiano Quintero D.O. PROCEDURE: Upper endoscopy with biopsy. ANESTHESIA: Per ELECTRICIAN'S ASSISTANT, Kaya Tarrillion. INSTRUMENT: Olympus adult flexible upper endoscope. INDICATIONS: GI bleeding. The procedure, risks, benefits, and possible consequences, including hemorrhage, aspiration, perforation and infection, and alternative treatments, were explained to the patient/legal guardian by Dr. Michael Villareal and the patient/legal guardian understood and accepted these risks. DESCRIPTION OF PROCEDURE: After informed consent was obtained and the patient was adequately sedated, Olympus upper endoscope was advanced from mouth into the second portion of the duodenum and retroflexion was performed in the stomach. The patient had a duodenal ulcer in the duodenal bulb with no obvious visible vessel. There was a dark spot at about 5 o'clock position in the ulcer, but it was not an obvious vessel. We do not see that this is actually a vessel. The ulcer was flat, less than a centimeter. There was evidence of duodenitis in this area too. At this time, we pulled the scope back into the stomach. We did biopsy of the antrum and body to rule out H. pylori infection. The rest of her examination was within normal limits. SUMMARY OF FINDINGS: 1. Duodenal ulcer. See above for details. 2. Gastritis, status post biopsy. RECOMMENDATIONS: Continue on PPI. The patient to be okay discharge with oral PPI given there is no visible vessel or adherent clot at this time. Follow up biopsy results and treat for H. pylori if it is positive. The patient is to be on a PPI until the biopsy results come back. The patient is to avoid NSAIDs and alcohol. I want to thank Dr. Christiano Quintero for this kind referral. Michael Villareal M.D. DR: ALEJO JOB#: [id number] CC: Christiano Quintero D.O.
--- NOTE | 2017-06-17 16:25 | Cardiac Electrophysiology PN ---
Subjective Subjective Dictated [id number] Objective Last 24 Hour Vital Signs Date Time Temp Pulse Resp B/P (MAP) Pulse Ox O2 Delivery O2 Flow Rate FiO2 06/17/17 14:05 98.9 102 19 113/69 97 Room Air 98.9 06/17/17 12:00 96.8 102 24 127/75 95 Room Air 96.8 06/17/17 10:47 97.2 78 19 110/58 99 Room Air 97.2 06/17/17 10:39 208.4 74 14 99 06/17/17 10:35 77 16 106/57 99 Room Air 06/17/17 10:25 81 18 108/59 100 Nasal Cannula 3.0 06/17/17 10:15 77 19 105/57 100 Nasal Cannula 3.0 06/17/17 10:05 76 19 103/61 100 Nasal Cannula 3.0 06/17/17 10:01 208.4 76 14 100 06/17/17 10:00 78 18 94/52 100 Nasal Cannula 3.0 06/17/17 09:55 98.3 85 22 84/43 100 Nasal Cannula 3.0 98.3 06/17/17 08:00 89 06/17/17 08:00 97.7 85 22 107/66 98 Room Air 97.7 06/17/17 04:00 77 06/17/17 00:00 98.7 84 20 108/60 100 Room Air 98.7 06/17/17 00:00 86 06/16/17 20:00 97.7 101 18 111/68 100 Room Air 97.7 06/16/17 20:00 91 06/16/17 19:21 97.9 94 12 113/67 100 Room Air 97.9 06/16/17 19:04 94 12 113/67 100 Room Air 06/16/17 18:00 98 14 123/62 100 Room Air 06/16/17 16:45 97.9 103 14 128/70 100 Room Air 97.9 06/16/17 16:25 98.0 90 18 110/70 Room Air 98.1 Intake and Output 06/16/17 06/17/17 19:00 07:00 Intake Total 1000 ml 1051.7 ml Balance 1000 ml 1051.7 ml Intake Oral 0 ml IV Total 1000 ml 1051.7 ml # Voids 2 # Bowel Movements 10 Laboratory Tests Test 06/16/17 17:00 06/16/17 17:20 06/16/17 18:15 06/16/17 18:30 White Blood Count 8.1 K/UL (4.8-10.8) 7.1 K/UL (4.8-10.8) Red Blood Count 4.36 M/UL (4.70-6.10) L 4.06 M/UL (4.70-6.10) L Hemoglobin 13.5 G/DL (14.2-18.0) L 12.6 G/DL (14.2-18.0) L Hematocrit 38.1 % (42.0-52.0) L 35.6 % (42.0-52.0) L Mean Corpuscular Volume 88 FL (80-99) 88 FL (80-99) Mean Corpuscular Hemoglobin 31.0 PG (27.0-31.0) 30.9 PG (27.0-31.0) Mean Corpuscular Hemoglobin Concent 35.4 G/DL (32.0-36.0) 35.3 G/DL (32.0-36.0) Red Cell Distribution Width 10.8 % (11.6-14.8) L 10.7 % (11.6-14.8) L Platelet Count 155 K/UL (150-450) 167 K/UL (150-450) Mean Platelet Volume 8.7 FL (6.5-10.1) 8.9 FL (6.5-10.1) Neutrophils (%) (Auto) 77.3 % (45.0-75.0) H 80.3 % (45.0-75.0) H Lymphocytes (%) (Auto) 15.1 % (20.0-45.0) L 12.4 % (20.0-45.0) L Monocytes (%) (Auto) 6.3 % (1.0-10.0) 6.3 % (1.0-10.0) Eosinophils (%) (Auto) 0.5 % (0.0-3.0) 0.3 % (0.0-3.0) Basophils (%) (Auto) 0.8 % (0.0-2.0) 0.6 % (0.0-2.0) Sodium Level 143 MMOL/L (136-145) Potassium Level 3.9 MMOL/L (3.5-5.1) Chloride Level 108 MMOL/L (98-107) H Carbon Dioxide Level 28 MMOL/L (21-32) Anion Gap 7 mmol/L (5-15) Blood Urea Nitrogen 24 mg/dL (7-18) H Creatinine 1.0 MG/DL (0.55-1.30) Estimat Glomerular Filtration Rate > 60 mL/min (>60) Glucose Level 124 MG/DL (74-106) H Calcium Level 8.5 MG/DL (8.5-10.1) Total Bilirubin 0.5 MG/DL (0.2-1.0) Aspartate Amino Transf (AST/SGOT) 25 U/L (15-37) Alanine Aminotransferase (ALT/SGPT) 72 U/L (12-78) Alkaline Phosphatase 67 U/L (46-116) Total Protein 6.1 G/DL (6.4-8.2) L Albumin 3.4 G/DL (3.4-5.0) Globulin 2.7 g/dL Albumin/Globulin Ratio 1.3 (1.0-2.7) Lipase 94 U/L (73-393) Urine Color Pale yellow Urine Appearance Clear Urine pH 7 (4.5-8.0) Urine Specific [place] 1.010 (1.005-1.035) Urine Protein Negative (NEGATIVE) Urine Glucose (UA) Negative (NEGATIVE) Urine Ketones 3+ (NEGATIVE) H Urine Occult Blood Negative (NEGATIVE) Urine Nitrite Negative (NEGATIVE) Urine Bilirubin Negative (NEGATIVE) Urine Urobilinogen Normal MG/DL (0.0-1.0) Urine Leukocyte Esterase Negative (NEGATIVE) Prothrombin Time 12.0 SEC (9.30-11.50) H Prothromb Time International Ratio 1.1 (0.9-1.1) Activated Partial Thromboplast Time 18 SEC (23-33) L Test 06/17/17 06:45 White Blood Count 4.3 K/UL (4.8-10.8) L Red Blood Count 3.46 M/UL (4.70-6.10) L Hemoglobin 10.7 G/DL (14.2-18.0) L Hematocrit 30.2 % (42.0-52.0) L Mean Corpuscular Volume 87 FL (80-99) Mean Corpuscular Hemoglobin 30.9 PG (27.0-31.0) Mean Corpuscular Hemoglobin Concent 35.4 G/DL (32.0-36.0) Red Cell Distribution Width 11.0 % (11.6-14.8) L Platelet Count 147 K/UL (150-450) L Mean Platelet Volume 8.9 FL (6.5-10.1) Neutrophils (%) (Auto) 49.1 % (45.0-75.0) Lymphocytes (%) (Auto) 37.2 % (20.0-45.0) Monocytes (%) (Auto) 11.4 % (1.0-10.0) H Eosinophils (%) (Auto) 1.1 % (0.0-3.0) Basophils (%) (Auto) 1.2 % (0.0-2.0) Prothrombin Time 12.0 SEC (9.30-11.50) H Prothromb Time International Ratio 1.1 (0.9-1.1) Activated Partial Thromboplast Time 24 SEC (23-33) Sodium Level 144 MMOL/L (136-145) Potassium Level 3.5 MMOL/L (3.5-5.1) Chloride Level 110 MMOL/L (98-107) H Carbon Dioxide Level 28 MMOL/L (21-32) Anion Gap 6 mmol/L (5-15) Blood Urea Nitrogen 16 mg/dL (7-18) Creatinine 0.9 MG/DL (0.55-1.30) Estimat Glomerular Filtration Rate > 60 mL/min (>60) Glucose Level 119 MG/DL (74-106) H Calcium Level 8.1 MG/DL (8.5-10.1) L Total Bilirubin 0.4 MG/DL (0.2-1.0) Aspartate Amino Transf (AST/SGOT) 16 U/L (15-37) Alanine Aminotransferase (ALT/SGPT) 53 U/L (12-78) Alkaline Phosphatase 56 U/L (46-116) Total Protein 5.1 G/DL (6.4-8.2) L Albumin 3.0 G/DL (3.4-5.0) L Globulin 2.1 g/dL Albumin/Globulin Ratio 1.4 (1.0-2.7) Amylase Level 20 U/L (25-115) L Lipase 72 U/L (73-393) L LAVINIA ENRIQUEZ Jun 17, 2017 16:25
--- NOTE | 2017-06-17 18:15 | History and Physical Report ---
DATE OF ADMISSION: 06/16/2017 ATTENDING PHYSICIAN: Christiano Quintero D.O. CONSULTANTS: 1. Michael Villareal M.D. 2. Damien Fink M.D. CHIEF COMPLAINT: GI bleed. BRIEF HISTORY: This is a 22-year-old male, who lives at home, yesterday presented with weakness, nausea and vomiting. Apparently vomited some blood. Also had some dark stool. The patient came to [place], diagnosed with the above, and admitted to telemetry for further care. Currently calm, feeling better, in bed. No complaint. PAST MEDICAL HISTORY: Nothing. PAST SURGICAL HISTORY: Nasal surgery. MEDICATIONS: Protonix, Zestril, Tylenol, morphine, MiraLAX, Zofran, Benadryl, and nitroglycerin. ALLERGIES: Denies. SOCIAL HISTORY: Positive smoke. Positive alcohol. No intravenous drug abuse. FAMILY HISTORY: Noncontributory. REVIEW OF SYSTEMS: No chest pain. Slight shortness of breath. Slight nausea and vomiting. No diarrhea. PHYSICAL EXAMINATION: GENERAL: Calm in bed, oriented x3, in no acute distress. VITAL SIGNS: Temperature is 97 degrees, pulse 78, respirations 19, and blood pressure 110/58. CARDIOVASCULAR: No murmur. LUNGS: Distant and clear. ABDOMEN: Bowel sound positive. Nontender. Nondistended. EXTREMITIES: No cyanosis, clubbing, or edema. NEUROLOGIC: The patient moves all extremities, slightly weak. LABORATORY AND DIAGNOSTIC DATA: Labs at this time show hemoglobin initially 13.5, now at 10.7 and hematocrit 30, white count 4.3 and platelets 147. BMP shows chloride 110, glucose 119, and albumin 3.0, otherwise normal. INR is 1.1 and PTT is 24. Urinalysis showed 3+ ketones. ASSESSMENT: 1. Gastrointestinal bleed. 2. Anemia. 3. Vomiting. 4. History of syncope. PLAN: 1. Continue premedications. 2. Gastroenterology followup. 3. Transfuse p.r.n. 4. Dietary followup. 5. Dr. Villareal, Dr. Fink, Dr. Banks, and Dr. Aviles to consult. 6. We will continue to follow the patient. Christiano Quintero D.O. DR: KENDRA JOB#: [id number] CC:
[2017-06-17] MEDS ORDERED: Miralax 17gm pkt ORAL PRN (21:00)
[2017-06-18] VITALS: BP 91/55
[2017-06-18 03:17] VITALS: BP 90/47
--- NOTE | 2017-06-18 03:30 | Consultation ---
DATE OF CONSULTATION: 06/17/2017 CARDIOLOGY CONSULTATION CONSULTING PHYSICIAN: Luis Aviles M.D. REFERRING PHYSICIAN: Christiano Quintero D.O. REASON FOR CONSULTATION: Tachycardia. HISTORY OF PRESENT ILLNESS: The patient is a 22-year-old gentleman with history of gastroesophageal reflux disease, presented to the emergency room after he has noted some bright red blood. The patient started vomiting coffee-ground with bright red blood. The patient was found to be hypotensive and diaphoretic by paramedics, currently passed out twice earlier today. The patient was admitted to telemetry for acute GI bleed evaluation. The patient also underwent endoscopy by Dr. Villareal that showed duodenal ulcer. REVIEW OF SYSTEMS: Review of systems was performed and was negative other than what was mentioned in the history of present illness. PAST MEDICAL HISTORY: Gastroesophageal reflux disease. FAMILY HISTORY: Noncontributory. SOCIAL HISTORY: He lives at home. Does not smoke or drink alcohol. He is from [place]. PHYSICAL EXAMINATION: VITAL SIGNS: Blood pressure is 113/69, pulse is 102, respirations 18, and he is afebrile. HEAD AND NECK: Shows no JVD. LUNGS: Clear. CARDIOVASCULAR: Shows regular S1 and S2 with no gallop or murmur. ABDOMEN: Soft. EXTREMITIES: No pitting edema. LABORATORY AND IMAGING DATA: His EKG showed normal sinus rhythm. Labs showed white count of 4.2, hematocrit 10.7, hematocrit of 30, and platelet count of 147,000. Sodium 144, potassium 3.5, BUN of 16, creatinine 0.9, and glucose of 119. ASSESSMENT AND PLAN: Syncope due to severe anemia due to duodenal ulcer bleed. The patient already underwent EGD by Dr. Villareal. no prior cardiac history. No further investigation is warranted at this time. We will just order an echocardiogram for further evaluation. Thank you very much, Dr. Quintero, for allowing me to participate in the care of this patient. Please do not hesitate to contact me if you have any questions regarding my evaluation. Luis Aviles M.D. DR: KEILA JOB#: [id number] CC:
[2017-06-18 03:48] VITALS: BP 97/58
[2017-06-18] MEDS: D5NS 1,000 ML IV SCH (06:03)
[2017-06-18 07:21] LABS: BASOPHILS % (AUTO) 1.2 % (0.0-2.0); EOSINOPHILS % (AUTO) 2.2 % (0.0-3.0); HEMATOCRIT 26.8 % (42.0-52.0); HEMOGLOBIN 9.7 G/DL (14.2-18.0); LYMPHOCYTES % (AUTO) 41.2 % (20.0-45.0); MEAN CORPUSCULAR VOLUME 87 FL (80-99); MONOCYTES % (AUTO) 11.9 % (1.0-10.0); NEUTROPHILS % (AUTO) 43.5 % (45.0-75.0); PLATELET COUNT 122 K/UL (150-450); RED BLOOD COUNT 3.07 M/UL (4.70-6.10); RED CELL DISTRIBUTION WIDTH 10.9 % (11.6-14.8); WHITE BLOOD COUNT 4.1 K/UL (4.8-10.8)
[2017-06-18 07:43] LABS: ALANINE AMINOTRANSFERASE 49 U/L (12-78); ALBUMIN/GLOBULIN RATIO 1.2 (1.0-2.7); ALKALINE PHOSPHATASE 56 U/L (46-116); ANION GAP 3 mmol/L (5-15); ASPARTATE AMINO TRANSFERASE 13 U/L (15-37); BILIRUBIN,TOTAL 0.4 MG/DL (0.2-1.0); BLOOD UREA NITROGEN 8 mg/dL (7-18); CALCIUM 8.1 MG/DL (8.5-10.1); CARBON DIOXIDE 29 MMOL/L (21-32); CHLORIDE 107 MMOL/L (98-107); CREATININE 0.9 MG/DL (0.55-1.30); INR 1.1 (0.9-1.1); POTASSIUM 3.3 MMOL/L (3.5-5.1); SODIUM 139 MMOL/L (136-145)
[2017-06-18 08:00] VITALS: BP 98/56
[2017-06-18 08:06] LABS: PHOSPHORUS 3.6 MG/DL (2.5-4.9)
--- NOTE | 2017-06-18 08:35 | General Progress Note ---
Assessment/Plan Problem List: (1) Syncopal episodes ICD Codes: R55 - Syncope and collapse SNOMED: 584714990 Qualifiers: Qualified Codes: R55 - Syncope and collapse (2) UGI bleed ICD Codes: K92.2 - Gastrointestinal hemorrhage, unspecified SNOMED: 27025137 (3) GERD (gastroesophageal reflux disease) ICD Codes: K21.9 - Gastro-esophageal reflux disease without esophagitis SNOMED: 289244603 Status: stable, progressing, tolerating diet Assessment/Plan diet gi/fu cbc bmp am dc if clear Subjective Constitutional: Reports: weakness Allergies: Coded Allergies: No Known Allergies (Unverified , 06/16/17) All Systems: reviewed and negative except above Subjective eating ok Objective Last 24 Hour Vital Signs Date Time Temp Pulse Resp B/P (MAP) Pulse Ox O2 Delivery O2 Flow Rate FiO2 06/18/17 08:00 96.9 89 20 98/56 100 96.9 06/18/17 03:48 97/58 06/18/17 03:17 96.8 78 20 90/47 98 Room Air 96.8 06/18/17 00:00 97.9 80 20 91/55 97.9 06/17/17 20:00 98.2 99 20 112/71 99 98.2 06/17/17 16:00 99.6 111 19 105/52 97 99.6 06/17/17 14:05 98.9 102 19 113/69 97 Room Air 98.9 06/17/17 12:00 96.8 102 24 127/75 95 Room Air 96.8 06/17/17 10:47 97.2 78 19 110/58 99 Room Air 97.2 06/17/17 10:39 208.4 74 14 99 06/17/17 10:35 77 16 106/57 99 Room Air 06/17/17 10:25 81 18 108/59 100 Nasal Cannula 3.0 06/17/17 10:15 77 19 105/57 100 Nasal Cannula 3.0 06/17/17 10:05 76 19 103/61 100 Nasal Cannula 3.0 06/17/17 10:01 208.4 76 14 100 06/17/17 10:00 78 18 94/52 100 Nasal Cannula 3.0 06/17/17 09:55 98.3 85 22 84/43 100 Nasal Cannula 3.0 98.3 Intake and Output 06/17/17 06/18/17 19:00 07:00 Intake Total 1170 ml 1020 ml Output Total 0 ml Balance 1170 ml 1020 ml Intake Oral 470 ml 120 ml IV Total 700 ml 900 ml Output Estimated Blood Loss 0 ml # Voids 4 2 # Bowel Movements 2 1 Laboratory Tests 06/18/17 05:45: White Blood Count 4.1L, Red Blood Count 3.07L, Hemoglobin 9.7L, Hematocrit 26.8L , Mean Corpuscular Volume 87, Mean Corpuscular Hemoglobin 31.5H, Mean Corpuscular Hemoglobin Concent 36.1H, Red Cell Distribution Width 10.9L, Platelet Count 122L, Mean Platelet Volume 8.7, Neutrophils (%) (Auto) 43.5L, Lymphocytes (%) (Auto) 41.2, Monocytes (%) (Auto) 11.9H, Eosinophils (%) (Auto) 2.2, Basophils (%) (Auto) 1.2, Prothrombin Time 11.5, Prothromb Time International Ratio 1.1, Activated Partial Thromboplast Time 24, Sodium Level 139, Potassium Level 3.3L, Chloride Level 107, Carbon Dioxide Level 29, Anion Gap 3L, Blood Urea Nitrogen 8, Creatinine 0.9, Estimat Glomerular Filtration Rate > 60, Glucose Level 118H, Calcium Level 8.1L, Phosphorus Level 3.6, Magnesium Level 2.0, Total Bilirubin 0.4, Aspartate Amino Transf (AST/SGOT) 13L , Alanine Aminotransferase (ALT/SGPT) 49, Alkaline Phosphatase 56, Total Protein 5.4L, Albumin 3.0L, Globulin 2.4, Albumin/Globulin Ratio 1.2 Height (Feet): 5 Height (Inches): 8.00 Weight (Pounds): 156 General Appearance: alert EENT: normal ENT inspection Neck: normal alignment Cardiovascular: normal peripheral pulses, normal rate, regular rhythm Respiratory/Chest: chest wall non-tender, lungs clear, normal breath sounds Abdomen: normal bowel sounds, non tender, soft Extremities: normal inspection Edema: no edema noted Arm (L), no edema noted Arm (R), no edema noted Leg (L), no edema noted Leg (R), no edema noted Pedal (L), no edema noted Pedal (R), no edema noted Generalized Neurologic: responsive, motor weakness Skin: normal pigmentation, warm/dry MELISSA RAMON Jun 18, 2017 08:35
[2017-06-18] MEDS ORDERED: OMEPRAZOLE40 M1 ORAL (09:18)
--- NOTE | 2017-06-18 11:03 | Pulmonology Progress Note ---
Assessment/Plan Problems: (1) UGI bleed (2) Hemorrhagic shock (3) Syncopal episodes (4) GERD (gastroesophageal reflux disease) Assessment/Plan hemodynamically stable started on regular diet check h/h prbc prn dc planing soon Subjective ROS Limited/Unobtainable: No Constitutional: Reports: no symptoms HEENT: Repors: no symptoms Respiratory: Reports: no symptoms Allergies: Coded Allergies: No Known Allergies (Unverified , 06/16/17) Objective Last 24 Hour Vital Signs Date Time Temp Pulse Resp B/P (MAP) Pulse Ox O2 Delivery O2 Flow Rate FiO2 06/18/17 08:00 96.9 89 20 98/56 100 96.9 06/18/17 03:48 97/58 06/18/17 03:17 96.8 78 20 90/47 98 Room Air 96.8 06/18/17 00:00 97.9 80 20 91/55 97.9 06/17/17 20:00 98.2 99 20 112/71 99 98.2 06/17/17 16:00 99.6 111 19 105/52 97 99.6 06/17/17 14:05 98.9 102 19 113/69 97 Room Air 98.9 06/17/17 12:00 96.8 102 24 127/75 95 Room Air 96.8 Intake and Output 06/17/17 06/18/17 19:00 07:00 Intake Total 1170 ml 1020 ml Output Total 0 ml Balance 1170 ml 1020 ml Intake Oral 470 ml 120 ml IV Total 700 ml 900 ml Output Estimated Blood Loss 0 ml # Voids 4 2 # Bowel Movements 2 1 General Appearance: WD/WN HEENT: normocephalic Respiratory/Chest: chest wall non-tender Cardiovascular: normal peripheral pulses, regular rhythm Abdomen: normal bowel sounds, soft, non tender Genitourinary: normal external genitalia Skin: no rash 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 Laboratory Tests 06/18/17 05:45: White Blood Count 4.1L, Red Blood Count 3.07L, Hemoglobin 9.7L, Hematocrit 26.8L , Mean Corpuscular Volume 87, Mean Corpuscular Hemoglobin 31.5H, Mean Corpuscular Hemoglobin Concent 36.1H, Red Cell Distribution Width 10.9L, Platelet Count 122L, Mean Platelet Volume 8.7, Neutrophils (%) (Auto) 43.5L, Lymphocytes (%) (Auto) 41.2, Monocytes (%) (Auto) 11.9H, Eosinophils (%) (Auto) 2.2, Basophils (%) (Auto) 1.2, Prothrombin Time 11.5, Prothromb Time International Ratio 1.1, Activated Partial Thromboplast Time 24, Sodium Level 139, Potassium Level 3.3L, Chloride Level 107, Carbon Dioxide Level 29, Anion Gap 3L, Blood Urea Nitrogen 8, Creatinine 0.9, Estimat Glomerular Filtration Rate > 60, Glucose Level 118H, Calcium Level 8.1L, Phosphorus Level 3.6, Magnesium Level 2.0, Total Bilirubin 0.4, Aspartate Amino Transf (AST/SGOT) 13L , Alanine Aminotransferase (ALT/SGPT) 49, Alkaline Phosphatase 56, Total Protein 5.4L, Albumin 3.0L, Globulin 2.4, Albumin/Globulin Ratio 1.2 Current Medications Medications (Trade) Dose Ordered Sig/Hilary Route PRN Reason Start Time Stop Time Status Last Admin Dose Admin Acetaminophen (Tylenol) 650 mg Q4H PRN ORAL T>100.5 06/17/17 14:30 07/16/17 14:29 Al Hydroxide/Mg Hydroxide (Mylanta II) 30 ml Q6H PRN ORAL dyspepsia 06/17/17 14:30 07/16/17 14:29 Diphenhydramine HCl (Benadryl) 25 mg Q6H PRN ORAL Itching/Pruritis 06/17/17 14:30 07/16/17 14:29 Nitroglycerin (Ntg) 0.4 mg Q5M X 3 DOSES PRN SL Prn Chest Pain 06/17/17 14:30 07/16/17 14:29 Polyethylene Glycol (Miralax) 17 gm HSPRN PRN ORAL Constipation 06/17/17 21:00 07/16/17 20:59 Temazepam (Restoril) 15 mg HSPRN PRN ORAL Insomnia 06/17/17 21:00 06/23/17 20:59 DAILY OWEN Jun 18, 2017 11:03
[2017-06-18] MEDS ORDERED: D5NS 1000ml IV ONE ×2 (11:10→11:29)
--- NOTE | 2017-06-19 15:18 | Cardiology Report ---
APPROVED REPORT EKG Measurement Heart [id number] Normal sinus rhythm Normal ECG
--- NOTE | 2017-06-20 13:23 | Discharge Summary ---
Discharge Summary Hospital Course Date of Admission Jun 16, 2017 at 17:11 Date of Discharge Jun 18, 2017 at 11:30 Admitting Diagnosis GI BLEED, SHOCK HPI Roberto Reynoso is a 22 year old male who was admitted on Jun 16, 2017 at 17:11 for Gastrointestinal Bleed, Shock Hospital Course dc summary #[id number] Discharge Medications Continued Medications: Omeprazole (Omeprazole) 40 Mg Capsule.dr 40 MG ORAL DAILY, #30 CAP Discharge Condition Upon Discharge: stable Discharge Disposition Patient was discharged to Home () Discharge Diagnoses: Discharge Instructions Discharge Instructions Special Instructions I have been assigned to complete a D/C Summary on this account. I was not involved in the patient management Shobha Muller NP ([place]) Jun 20, 2017 13:22
--- NOTE | 2017-06-21 02:00 | Discharge Summary 2 SIG ---
DATE OF ADMISSION: 06/16/2017 DATE OF DISCHARGE: 06/18/2017 REASON FOR ADMISSION: A 22-year-old male with history of GERD, presented after he had melena the night prior to presentation. The patient started vomiting coffee-ground emesis and then bright red blood. The patient with history of gastritis, which was not as severe a year ago. Paramedics found him diaphoretic and hypotensive. He responded to bolus of 500 mL of normal saline and being in supine position. The patient denied any abdominal pain. The patient with history of gastritis and GERD, but was not taking any medication at that time. He denied use of alcohol or nonsteroidal anti-inflammatory medications. The patient passed out twice earlier the day of the presentation to ED and his friend called paramedics. Upon presentation, blood pressure was already stable after bolus, -110/70, and pulse oximetry was stable on room air. No fever. No leukocytosis. Hemoglobin- 13.5 and hematocrit- 38.1. BUN- 24 and creatinine -1.0. Electrolytes stable. Lipase within normal limits. Urinalysis negative. EKG revealed no acute ischemic changes. Chest x-ray showed no acute cardiopulmonary disease, and abdominal x-ray showed no masses, nonspecific bowel gas. No small bowel obstruction. The patient was admitted with diagnoses of upper GI bleeding, hemorrhagic shock, and syncopal episode. HOSPITAL STAY: The patient admitted. Cardiology, GI, and Pulmonology evaluations were requested. The patient initially was NPO, started on the IV fluids, and antiemetics were on board as needed. Hemoglobin and hematocrit were closely monitored. GI seen and evaluated the patient. The patient subsequently underwent EGD. EGD revealed duodenal ulcer and gastritis, status post biopsy. GI recommended continued PPI,and cleared for discharge on PPI, given there was no visible vessel or adherent clot at the time of procedure. Follow up with biopsy result and treat for H. pylori if positive. Biopsy results still pending. The patient to be on PPI until biopsy results back. The patient was advised to avoid nonsteroidal anti-inflammatory drugs and alcohol. Hemoglobin and hematocrit were closely monitored. The lowest hemoglobin -9.7 and hematocrit -26.8. No leukocytosis. Potassium replaced. Renal parameters were closely monitored. With IV fluids, BUN down to 8 from 24. Venous duplex of bilateral lower extremities was negative. DVT prophylaxis provided. Cardiology seen the patient for syncopal episode and stated that the patient had a syncopal episode likely due to severe anemia. The patient had no prior cardiac history. EKG showed sinus rhythm. No cardiac complaints. 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 The patient was stable for discharge. FINAL DIAGNOSES: 1. Upper gastrointestinal bleeding. 2. Hemorrhagic shock. 3. Syncopal episode. 4. Gastroesophageal reflux disease. 5. Anemia. 6. Status post esophagogastroduodenoscopy. 7. Gastritis, status post biopsy. 8. Duodenal ulcer. DISCHARGE MEDICATIONS: See medication reconciliation list. DISCHARGE INSTRUCTIONS: The patient discharged home. Follow up with primary care provider. Should biopsy results come back positive, the patient will be contacted Christiano Quintero D.O. I have been assigned to dictate discharge summary on this account and I was not involved in the patient's management. Shobha RamirezHelen Hayes HospitalМарина N.PАнна DR: Mirna JOB#: [id number] CC: ANIKET
--- NOTE | 2017-06-22 13:05 | Diagnostic Imaging Report ---
APPROVED REPORT CPT Code: 94543 Present Symptoms Comments: R/O DVT BILATERAL: Imaging reveals a patent deep venous system bilaterally. There is no evidence of thrombus within the femoral, popliteal or tibial segments. The greater saphenous veins are also within normal limits. Doppler indicates normal spontaneous flow within these segments.
== END 2017-06-18 11:30 | disposition home or self-care (01) | DRG 377 ==
LOC: EDBD 16:32 → EMR 17:07 → 2E 17:11 → EDBEDREQ 18:30 → 4W 06-17 13:54
DX: K92.2 Gastrointestinal hemorrhage, unspecified (principal); R57.8 Other shock; R55 Syncope and collapse; D50.0 Iron deficiency anemia secondary to blood loss (chronic); K21.9 Gastro-esophageal reflux disease without esophagitis; F17.200 Nicotine dependence, unspecified, uncomplicated; K29.70 Gastritis, unspecified, without bleeding; K26.9 Duodenal ulcer, unspecified as acute or chronic, without hemorrhage or perforation
CPT/HCPCS: 36415; 71045; 74018; 80053; 81003; 82150; 83690; 83735; 84100; 85025; 85610; 85730; 86850; 86900; 86901; 86920; 93005; 93306; 93970; 94003; 94150; 99285; J2405; J8499